=== PATIENT | male | born 1990 | race Caucasian/White ===

== ENCOUNTER 2021-10-30 21:46 | Emergency (ER) | payer OTHER ==
--- NOTE | 2021-10-30 22:17 | ERPHSYRPT ---
- History of Present Illness Time Seen by Provider: 10/30/21 22:12 Source: patient Exam Limitations: no limitations Patient Subjective Stated Complaint: PT states "I think I rebroke my right hand and I need a covid test for work." Triage Nursing Assessment: PT presented alert and oriented X 3, skin pwd Pt ambulates with an upright steady gait, able to speak in clear full sentencse pt right hand swollen and painful. Pt has intermittant cough. Physician History: PT states "I think I rebroke my right hand" Patient is 30-year-old male came to the emergency room with injury to his right hand with deformity in the mid part of the hand. Patient had a history of hand fracture last year. Occurred: just prior to arrival Method of Injury: direct blow Quality: constant Severity of Pain-Max: moderate Severity of Pain-Current: moderate Extremities Pain Location: hand: right Modifying Factors: Improves With: cold therapy Associated Symptoms: none Allergies/Adverse Reactions: No Known Drug Allergies Allergy (Verified 10/30/21 21:55) Hx Tetanus, Diphtheria Vaccination/Date Given: Yes Hx Influenza Vaccination/Date Given: No Hx Pneumococcal Vaccination/Date Given: No Immunizations Up to Date: Yes Travel Risk - International Travel Have you traveled outside of the country in past 3 weeks: No - Coronavirus Screening Are you exhibiting any of the following symptoms?: Yes Symptoms: Cough: New Onset Close contact with a COVID-19 positive Pt in past 14-21 Days: No - Vaccine Status Have you recieved a Covid-19 vaccination: No - Review of Systems Constitutional: No Symptoms Eyes: No Symptoms Ears, Nose, & Throat: No Symptoms Respiratory: No Symptoms Cardiac: No Symptoms Abdominal/Gastrointestinal: No Symptoms Genitourinary Symptoms: No Symptoms Musculoskeletal: Deformity, Joint Pain, Joint Swelling - Past Medical History Pertinent Past Medical History: Yes Psycho-Social History: Anxiety, Depression - Past Surgical History Past Surgical History: No - Social History Smoking Status: Current every day smoker How long have you smoked: years Exposure to second hand smoke: Yes Drug Use: none Patient Lives Alone: No - Nursing Vital Signs Nursing Vital Signs: Initial Vital Signs Temperature 97.6 F 10/30/21 21:50 Pulse Rate 98 H 10/30/21 21:50 Respiratory Rate 18 10/30/21 21:50 Blood Pressure 152/97 10/30/21 21:50 O2 Sat by Pulse Oximetry 98 10/30/21 21:50 Pain Scale Pain Intensity 6 - Physical Exam General Appearance: no apparent distress Eyes, Ears, Nose, Throat Exam: normal ENT inspection Neck Exam: normal inspection Cardiovascular/Respiratory Exam: chest non-tender Abdominal Exam: non-tender Back Exam: normal inspection Shoulder Exam: normal inspection Elbow/Forearm Exam: normal inspection Wrist Exam: normal inspection Hand Exam: bone tenderness, limited ROM, soft tissue tenderness, stiffness SpO2: 98 - Course Nursing assessment & vital signs reviewed: Yes - Radiology Exams Hand X-ray Interpretation: Reviewed by me, No Fracture Ordered Tests: Active Orders 24 hr Category Date Time Status HAND (MINIMUM 3 VIEWS) Stat Exams 10/30/21 21:54 Taken - Progress Progress: unchanged, pain not gone completely Counseled pt/family regarding: diagnosis, need for follow-up, rad results - Departure Departure Disposition: Home Clinical Impression: Injury of hand, right Qualifiers: Encounter type: initial encounter Qualified Code(s): S69.91XA - Unspecified injury of right wrist, hand and finger(s), initial encounter Condition: Stable Critical Care Time: No Referrals: DOCTOR,NO FAMILY [Primary Care Provider] - [facility]th[facility] M-F [id number] Instructions: Hand Pain (DC) Additional Instructions: Discharge/Care Plan KRISFLACA HERNANDEZ was seen on 10/30/21 in the Emergency Room. The patient was counseled regarding Diagnosis,Lab results, Imaging studies, need for follow up and when to return to the Emergency Room. Prescriptions given: Discharge Note I have spoken with the patient and/or caregivers. I have explained the patient's condition, diagnosis and treatment plan based on the information available to me at this time. I have answered the patient's and/or caregiver's questions and addressed any concerns. The patient and/or caregivers have as good understanding of the patient's diagnosis, condition and treatment plan as can be expected at this point. The vital signs have been stable. The patient's condition is stable and appropriate for discharge from the emergency department. The patient will pursue further outpatient evaluation with the primary care physician or other designated or consulting physician as outlined in the discharge instructions. The patient and/or caregivers are agreeable to this plan of care and follow-up instructions have been explained in detail. The patient and/or caregivers have received these instruction. The patient/and or caregivers are aware that any significant change in condition or worsening of symptoms should prompt an immediate return to this or the closest emergency department or call 911. KRISFLACA HERNANDEZ was seen on 10/30/21 n the Emergency Room. At that time you were treated for an emergent condition, during your visit Laboratory, Radiology and/or other procedures may have been ordered. It is very important that you follow-up with your Primary Care Physician NO FAMILY DOCTOR within the next 24-48 hours to review your Emergency Room visit and the final results of testing that was ordered. Some test results such as Urine Cultures, Blood Cultures, and other cultures if ordered will not be finalized for 24-48 hours. If you do not have a Primary Care Provider please call the medical records department at [phone] ext [phone] to obtain a copy of your results or you may sign into our patient portal to obtain these results by visiting us @ [email or web address] and completing the following steps: 1. Click on the Patient Portal link 2. Click the Patient Self Enrollment Link to complete the enrollment form and entering your 3. Once the enrollment form is completed you will receive an email with a temporary ID and password at the email address you provided. 4. Next choose a user name and password. Your user name must be at least 4 davonte cters long and your password must be at least 4 characters long. 5. Choose a security question from the list and provide your answer to the question. If you already have signed into the Health Portal you may access your Health Care Information 27/02 by the following steps: 1. Login to our website @ [email or web address] 2. Enter your original user name and password. FAQS The [facility] Health Portal is an online tool that contains your Lab Results, Radiology Reports, Visit History, Discharge Instructions and Health Summary Lab and Radiology Results will not be available for 72 hours on the portal. The Portal is a secure site, passwords are encryted and URLs are re-written so they cannot be copied and pasted. You and authorized family members are the only ones who can access your Portal. Also there is a timeout feature that protects your information if you leave the Portal page open. If you have technical difficulty please use the Contact Us link on the page this will allow you to submit any questions you have regarding the Portal or you may contact the Medical Record Department at [phone] ext [phone]. Prescriptions: Naproxen 500 mg [Naprosyn 500 MG] 500 mg PO BIDAC #30 tablet
[2021-10-30 23:10] VITALS: BP 119/72; PULSE 92; O2SAT 98
[2021-10-30] MEDS ORDERED: Naprosyn 500 MG PO ONE (23:15)
[2021-10-30] MEDS ORDERED: Naprosyn 500 MG ONE (23:17)
--- NOTE | 2021-10-31 08:11 | XRAY ---
Indication: Pain and swelling following injury. Comparison: None 3 view right hand demonstrates shortened 4th/5th metacarpals, developmental versus metabolic versus old trauma. No other bony, articular, or soft tissue abnormalities. Comment: Preliminary interpretation made by [facility]. No critical discrepancy.
== END 2021-10-30 23:36 | disposition home or self-care (01) ==
LOC: ED 21:46
DX: S69.91XA Unspecified injury of right wrist, hand and finger(s), initial encounter (principal); M79.641 Pain in right hand; M25.531 Pain in right wrist; R05.9 Cough, unspecified; Z72.0 Tobacco use
CPT/HCPCS: 73130; 99284; U0003; A9270-GY

== ENCOUNTER 2021-12-01 22:26 | Emergency (ER) | payer OTHER ==
[2021-12-01 23:32] LABS: Absolute Neutrophil Ct (ANC) 6.29 (1.4-6.9); Basophil (Absolute #) 0.02 (0-0.4); Eosinophil % 2.6 % (0.00-5.0); Eosinophil (Absolute #) 0.27 (0-0.5); Hematocrit 39.8 % (42-50); Hemoglobin 13.8 gm/dl (12.5-18.0); Lymphocyte (Absolute #) 2.87 (1.0-4.6); Lymphocytes % 27.7 % (24.0-44.0); Mean Cell Volume 85.2 fl (78-100); Mean Corpuscular Hemoglobin 29.6 pg (26-32); Mean Corpuscular Hgb Concent. 34.7 g/dl (32-36); Mean Platelet Volume 10.6 fl (7.5-11.0); Monocyte (Absolute #) 0.91 (0.0-1.3); Monocytes % 8.8 % (0.0-12.0); Neutrophil % 60.7 % (36.0-66.0); Platelet Count 273 K/mm3 (150-450); Red Blood Count 4.67 M/mm3 (4.1-5.6); White Blood Count 10.4 K/mm3 (4.0-10.5)
[2021-12-01 23:47] LABS: ALBUMIN 4.3 g/dL (3.5-5.0); ALKALINE PHOSPHATASE 76 U/L (38-126); ANION GAP 14.6 MEQ/L (5-15); BLOOD UREA NITROGEN 17 mg/dL (9-20); CHLORIDE 107 mmol/L (98-107); Calcium 9.4 mg/dL (8.4-10.2); Carbon Dioxide 21 mmol/L (22-30); Creatinine 1 1.01 mg/dL (0.66-1.25); EST GLOMERULAR FILTRATION RATE > 60.0 ML/MIN; Glucose 99 mg/dL (74-106); Potassium 3.7 mmol/L (3.5-5.1); SGOT/AST 37 U/L (17-59); SGPT/ALT 40 U/L (0-50); SODIUM 139 mmol/L (137-145); Total Protein 7.5 g/dL (6.3-8.2)
[2021-12-02 00:03] VITALS: BP 131/81; PULSE 108; O2SAT 97
--- NOTE | 2021-12-02 00:26 | ERPHSYRPT ---
- History of Present Illness Time Seen by Provider: 12/01/21 22:28 Source: patient Exam Limitations: no limitations Patient Subjective Stated Complaint: C/O active bleeding from his rectum that started just prior to arrival to ED. Triage Nursing Assessment: Patient ambulated back to ED with a slow, steady gait. He is alert and oriented and answering questions appropriately. Denies any abdominal pain or history of hemorroids. Patient showed this nurse pictures of toilet paper with a small amount of bright red blood on it from his phone. Patient then pulled toilet paper out of his boxer shorts with a small amount of bright red blood on it that he stated he had tucked in his buttocks. Denies any trauma or injury to rectum/anus. Physician History: 30-year-old currently on Suboxone for opiate abuse presented in the ER with bright red blood per rectum small amount when he had a bowel movement earlier at work. Patient denies any passing of clots. Reports that he does have to strain a lot. Denies any history of hemorrhoids. No abdominal/pelvic pain. No fever or chills reported. Denies any trauma. Patient brought picture of blood on toilet paper. Not taking any blood thinner. No history of blood dyscrasias. Timing/Duration: today, resolved prior to arrival, improved Severity: mild Modifying Factors: Improves With: nothing Associated Symptoms: No vomiting, No abdominal pain, No heartburn, No syncope, No weakness Allergies/Adverse Reactions: No Known Drug Allergies Allergy (Verified 12/01/21 22:37) Home Medications: Buprenorphine HCl/Naloxone HCl [Buprenorphine-Nalox 8-2 mg Tab] 2.25 tab PO DAILY 12/01/21 [History] Hx Tetanus, Diphtheria Vaccination/Date Given: Yes Hx Influenza Vaccination/Date Given: No Hx Pneumococcal Vaccination/Date Given: No Immunizations Up to Date: Yes Travel Risk - International Travel Have you traveled outside of the country in past 3 weeks: No - Coronavirus Screening Are you exhibiting any of the following symptoms?: No Close contact with a COVID-19 positive Pt in past 14-21 Days: No - Vaccine Status Have you recieved a Covid-19 vaccination: No - Review of Systems Constitutional: No Symptoms Ears, Nose, & Throat: No Symptoms Respiratory: No Symptoms Cardiac: No Symptoms Abdominal/Gastrointestinal: Hematochezia Genitourinary Symptoms: No Symptoms Skin: No Symptoms Endocrine: No Symptoms Hematologic/Lymphatic: No Symptoms - Past Medical History Pertinent Past Medical History: Yes Neurological History: No Pertinent History ENT History: No Pertinent History Cardiac History: No Pertinent History Respiratory History: No Pertinent History Endocrine Medical History: No Pertinent History Musculoskeletal History: Fractures GI Medical History: No Pertinent History History: No Pertinent History Psycho-Social History: Anxiety, Depression Male Reproductive Disorders: No Pertinent History - Past Surgical History Past Surgical History: Yes Neuro Surgical History: No Pertinent History Cardiac: No Pertinent History Respiratory: No Pertinent History Gastrointestinal: No Pertinent History Genitourinary: No Pertinent History Musculoskeletal: No Pertinent History Male Surgical History: No Pertinent History - Social History Smoking Status: Current every day smoker How long have you smoked: 12 years Exposure to second hand smoke: No Drug Use: none Patient Lives Alone: No - Nursing Vital Signs Nursing Vital Signs: Initial Vital Signs Temperature 97.2 F 12/01/21 22:37 Pulse Rate 120 H 12/01/21 22:37 Respiratory Rate 21 12/01/21 22:37 Blood Pressure 144/83 12/01/21 22:37 O2 Sat by Pulse Oximetry 97 12/01/21 22:37 Pain Scale Pain Intensity 7 - Physical Exam General Appearance: no apparent distress, alert Eye Exam: PERRL/EOMI Ears, Nose, Throat Exam: normal ENT inspection, pharynx normal Neck Exam: normal inspection, supple, full range of motion Respiratory Exam: normal breath sounds, lungs clear Cardiovascular Exam: regular rate/rhythm, normal heart sounds Gastrointestinal/Abdomen Exam: soft, normal bowel sounds, No tenderness Rectal Exam: normal rectal tone, blood (Small amount of blood staining the finger. No obvious hemorrhoids externally.), No tenderness Back Exam: normal inspection, normal range of motion Extremity Exam: normal inspection, normal range of motion Neurologic Exam: alert, oriented x 3, cooperative Skin Exam: normal color SpO2 Interpretation: normal SpO2: 97 O2 Delivery: Room Air Ordered Tests: Active Orders 24 hr Category Date Time Status CBC W DIFF Stat Lab 12/01/21 23:25 Completed CMP Stat Lab 12/01/21 23:25 Completed PTT Stat Lab 12/01/21 23:25 Completed Lab/Rad Data: Laboratory Result Diagrams 12/01/21 23:25 12/01/21 23:25 Laboratory Results 12/01/21 12/01/21 12/01/21 Range/Units 23:25 23:25 23:25 WBC 10.4 (4.0-10.5) K/mm3 RBC 4.67 (4.1-5.6) M/mm3 Hgb 13.8 (12.5-18.0) gm/dl Hct 39.8 L (42-50) % MCV 85.2 (78-100) fl MCH 29.6 (26-32) pg MCHC 34.7 (32-36) g/dl RDW 13.0 (11.5-14.0) % Plt Count 273 (150-450) K/mm3 MPV 10.6 (7.5-11.0) fl Gran % 60.7 (36.0-66.0) % Eos # (Auto) 0.27 (0-0.5) Absolute Lymphs (auto) 2.87 (1.0-4.6) Absolute Monos (auto) 0.91 (0.0-1.3) Lymphocytes % 27.7 (24.0-44.0) % Monocytes % 8.8 (0.0-12.0) % Eosinophils % 2.6 (0.00-5.0) % Basophils % 0.2 (0.0-0.4) % Absolute Granulocytes 6.29 (1.4-6.9) Basophils # 0.02 (0-0.4) APTT 35.5 (25.1-36.5) SECONDS Sodium 139 (137-145) mmol/L Potassium 3.7 (3.5-5.1) mmol/L Chloride 107 (98-107) mmol/L Carbon Dioxide 21 L (22-30) mmol/L Anion Gap 14.6 (5-15) MEQ/L BUN 17 (9-20) mg/dL Creatinine 1.01 (0.66-1.25) mg/dL Estimated GFR > 60.0 ML/MIN Glucose 99 (74-106) mg/dL Calcium 9.4 (8.4-10.2) mg/dL Total Bilirubin 0.30 (0.2-1.3) mg/dL AST 37 (17-59) U/L ALT 40 (0-50) U/L Alkaline Phosphatase 76 (38-126) U/L Serum Total Protein 7.5 (6.3-8.2) g/dL Albumin 4.3 (3.5-5.0) g/dL - Progress Progress: improved Progress Note: 12/02/21 00:23 As stable vital, no abdominal pain. Stable H&H. Recommended stool softener and outpatient primary care and general surgery follow-up for possible c olonoscopy/endoscopy. Discussed signs symptoms of worsening needing return to ER which he seems understanding. Counseled pt/family regarding: lab results, diagnosis, need for follow-up - Departure Departure Disposition: Home Clinical Impression: Rectal bleed Condition: Stable Critical Care Time: No Referrals: DOCTOR,NO FAMILY [Primary Care Provider] - Follow up/PCP as directed RANDY PAREDES MD [ACTIVE STAFF] - Follow up/PCP as directed (Call tomorrow for reevaluation) Instructions: Bloody Stools, Adult (DC) Additional Instructions: Drink plenty of fluids. Take daily stool softener. Follow-up with primary care/GI for reevaluation. Return to ER if again having rectal bleeding, abdominal pain, fever chills, feeling weak fatigued tired, chest pain palpitations or shortness of breath etc. Prescriptions: Polyethylene Glycol 3350 17 gm [Miralax Powder 17GM PACKET] 17 gm PO DAILY #30 packet
== END 2021-12-02 00:35 | disposition home or self-care (01) ==
LOC: ED 22:26
DX: K62.5 Hemorrhage of anus and rectum (principal); Z72.0 Tobacco use; Z79.891 Long term (current) use of opiate analgesic
CPT/HCPCS: 36415; 80053; 85025; 85730; 99283

== ENCOUNTER 2022-04-20 15:58 | Emergency (ER) | payer OTHER ==
--- NOTE | 2022-04-20 16:26 | ERPHSYRPT ---
- History of Present Illness Source: patient Exam Limitations: no limitations Patient Subjective Stated Complaint: C/O cough, sorethroat, headaches since Monday night. His job made him leave work today due to symptoms. Triage Nursing Assessment: Patient ambulated back to ED without difficulties. He is alert and oriented. No SOB noted. Weak, dry, non-productive cough noted during assessment. Physician History: 31 yo wm w cough/coryza/ST/SOLOMON x2days wo N/V/D. Pt smokes 1ppd. He denies chest pain and dyspnea. Timing/Duration: other (2 days) Cough Quality/Degree: dry cough Possible Cause: occasional episodes Modifying Factors: Improves With: nothing Associated Symptoms: cough, headache, nasal congestion, nasal drainage, sore throat, No fever, No chills, No chest pain/soreness, No dizziness, No earache, No facial pain, No lightheadedness, No muscle aches, No shortness of breath, No sinus infection, No wheezing Allergies/Adverse Reactions: No Known Drug Allergies Allergy (Verified 04/20/22 16:06) Home Medications: Buprenorphine HCl/Naloxone HCl [Buprenorphine-Nalox 8-2 mg Tab] 2.25 mg SL DAILY 02/01/22 [History] Bupropion HCl 150 mg Sr [Wellbutrin SR 150 MG] 1 tab PO DAILY 04/20/22 [History] Hx Tetanus, Diphtheria Vaccination/Date Given: Yes Hx Influenza Vaccination/Date Given: No Hx Pneumococcal Vaccination/Date Given: No Immunizations Up to Date: Yes Travel Risk - International Travel Have you traveled outside of the country in past 3 weeks: No - Coronavirus Screening Are you exhibiting any of the following symptoms?: Yes Symptoms: Cough: New Onset, Headaches/Body Aches/Fatigue - Vaccine Status Have you recieved a Covid-19 vaccination: No - Review of Systems Constitutional: No Symptoms Eyes: No Symptoms Ears, Nose, & Throat: No Symptoms, Nose Pain, Nose Congestion, Nose Discharge Respiratory: No Symptoms, Cough Cardiac: No Symptoms Abdominal/Gastrointestinal: No Symptoms Genitourinary Symptoms: No Symptoms Musculoskeletal: No Symptoms Skin: No Symptoms Neurological: No Symptoms Psychological: No Symptoms Endocrine: No Symptoms Hematologic/Lymphatic: No Symptoms Immunological/Allergic: No Symptoms - Past Medical History Pertinent Past Medical History: Yes Neurological History: No Pertinent History ENT History: No Pertinent History Cardiac History: No Pertinent History Respiratory History: No Pertinent History Endocrine Medical History: No Pertinent History Musculoskeletal History: Fractures GI Medical History: No Pertinent History History: No Pertinent History Psycho-Social History: Anxiety, Depression Male Reproductive Disorders: No Pertinent History - Past Surgical History Past Surgical History: Yes Neuro Surgical History: No Pertinent History Cardiac: No Pertinent History Respiratory: No Pertinent History Gastrointestinal: No Pertinent History Genitourinary: No Pertinent History Musculoskeletal: No Pertinent History Male Surgical History: No Pertinent History - Social History Smoking Status: Current every day smoker How long have you smoked: 12 years Exposure to second hand smoke: No Drug Use: none Patient Lives Alone: No - Nursing Vital Signs Nursing Vital Signs: Initial Vital Signs Temperature 98.4 F 04/20/22 16:08 Pulse Rate 89 04/20/22 16:08 Respiratory Rate 20 04/20/22 16:08 Blood Pressure 148/85 04/20/22 16:08 O2 Sat by Pulse Oximetry 95 04/20/22 16:08 Pain Scale Pain Intensity 6 Hypertensive - Physical Exam General Appearance: no apparent distress Eye Exam: PERRL/EOMI, eyes nml inspection Ears, Nose, Throat Exam: normal ENT inspection, TMs normal, pharynx normal, moist mucous membranes Neck Exam: normal inspection, non-tender, supple, full range of motion, No meningismus, No mass, No Brudzinski, No Kernig's Respiratory Exam: wheezing (Scattered wheezes B), No respiratory distress Cardiovascular Exam: regular rate/rhythm, normal heart sounds, capillary refill <2 sec, No murmur Gastrointestinal/Abdomen Exam: soft, normal bowel sounds, No tenderness Back Exam: normal inspection, normal range of motion, No CVA tenderness, No vertebral tenderness Extremity Exam: normal inspection, normal range of motion Neurologic Exam: alert, oriented x 3, cooperative, dentist II-XII nml as tested, normal mood/affect, nml cerebellar function, nml station & gait, sensation nml Skin Exam: normal color, warm, dry, No rash Lymphatic Exam: No adenopathy SpO2 Interpretation: normal SpO2: 95 O2 Delivery: Room Air - Course Nursing assessment & vital signs reviewed: Yes - Radiology Exams Chest X-ray Interpretation: Discussed w/ radiologist (CXR neg) Ordered Tests: Active Orders 24 hr Category Date Time Status CHEST 1 VIEW (PORTABLE) Stat Exams 04/20/22 16:21 Completed Lab/Rad Data: Laboratory Results 04/20/22 Range/Units Unknown Influenza Type A Ag NEGATIVE (NEGATIVE) Influenza Type B Ag NEGATIVE (NEGATIVE) RSV (PCR) NEGATIVE (Negative) SARS-CoV-2 (PCR) NEGATIVE (NEGATIVE) Group A Strep Antibody NOT DETECTED (NEGATIVE) - Progress Counseled pt/family regarding: lab results, diagnosis, need for follow-up, rad results - Departure Departure Disposition: Home Clinical Impression: Bronchitis Condition: Stable Critical Care Time: No Referrals: SURYA GREENE MD [Primary Care Provider] - Follow up/PCP as directed Instructions: Cough, Adult (DC), Bronchitis, Adult ED Additional Instructions: Follow up with your family MD Quit smoking Proventil inhaler 2 puffs every 4 hours as needed Prednisone twice a day for 5 days Return to ER for worsening cough, increasing shortness of breath, or temperature greater than 100.5 Forms: Work/School Release Form Prescriptions: Albuterol Sulfate [Proventil Hfa] 2 puffs IH Q4HPRN PRN #1 inhaler PRN Reason: Shortness Of Breath Prednisone 10 mg [Deltasone 10 mg] 10 mg PO BID 5 Days #10 tablet
[2022-04-20 16:45] LABS: Group A Strep NOT DETECTED (NEGATIVE)
[2022-04-20 16:57] LABS: INFLUENZA A NEGATIVE (NEGATIVE); INFLUENZA B NEGATIVE (NEGATIVE); RESPIRATORY SYNCTIAL VIRUS NEGATIVE (Negative); SARS-CoV-2 Xpert Express NEGATIVE (NEGATIVE)
--- NOTE | 2022-04-20 17:10 | XRAY ---
Exam: AP upright portable chest film from 04/20/2022. Comparison: None. Indication: 31-year-old male with cough. Findings: The film was obtained in a lordotic projection. The heart size and contour are normal. Minimal nonspecific central bronchial wall thickening is seen. The remainder of the izzy and mediastinal structures appears unremarkable. The lungs are adequately inflated. No air space infiltrates, vascular congestion, pneumothorax, or pleural fluid is seen. No other lung abnormality is seen. No acute osseous process is seen. Impression: 1. No air space infiltrates to suggest pneumonia or other acute cardiopulmonary disease seen.
[2022-04-20 17:19] VITALS: BP 139/82; PULSE 78
[2022-04-20 17:22] VITALS: O2SAT 95
== END 2022-04-20 17:33 | disposition home or self-care (01) ==
LOC: ED 15:58
DX: J40 Bronchitis, not specified as acute or chronic (principal); R05.1 Acute cough; R09.81 Nasal congestion; J02.9 Acute pharyngitis, unspecified; R51.9 Headache, unspecified; Z72.0 Tobacco use; Z79.891 Long term (current) use of opiate analgesic; Z79.52 Long term (current) use of systemic steroids; Z79.899 Other long term (current) drug therapy; Z28.310 Unvaccinated for COVID-19
CPT/HCPCS: 0241U; 71045; 87651; 99283

== ENCOUNTER 2022-07-10 16:48 | Emergency (ER) | payer OTHER ==
[2022-07-10] MEDS ORDERED: Sodium Chloride 0.9% 1000 ML 1,000 ML IV STA (17:39)
[2022-07-10] MEDS ORDERED: TORAdol 30 mg Injection IV ONE (17:39)
[2022-07-10] MEDS ORDERED: Zofran 4 MG/2 ML VIAL IV ONE (17:39)
[2022-07-10] MEDS ORDERED: Zofran 4 MG/2 ML VIAL ONE (17:43)
[2022-07-10] MEDS ORDERED: TORAdol 30 mg Injection ONE (17:43)
[2022-07-10] MEDS ORDERED: Sodium Chloride 0.9% 1000 ML 1,000 ML ONE (17:43)
--- NOTE | 2022-07-10 17:45 | ERPHSYRPT ---
- History of Present Illness Time Seen by Provider: 07/10/22 16:52 Historian: patient Exam Limitations: no limitations Patient Subjective Stated Complaint: Vomiting Triage Nursing Assessment: Patient ambulated back to ED and transferred self to bed. Patient A+O X 3. Patient's skin pink, warm and dry. Patient complains of vomiting, cough, fever, SOB, nausea, headache, bodyache and fatigue for one week. Patient was sent home from work today for vomiting. Patient also complains of blood in stool. Patient complains of body aches 03/16. Physician History: 31 years old male presented in the ER with 1 week history of flulike symptoms with generalized body aches fatigue tiredness, headache, abdominal pain nausea vomiting diarrhea. Feeling weak fatigued tired and dehydrated. Subjective feeling of fever and chills. Minimal cough without any obvious difficulty breathing. Timing/Duration: week(s) (1), constant, gradual onset, worse Activities at Onset: rest Quality: cramping, dullness Abdominal Pain Onset Location: generalized abdomen Pain Radiation: no radiation Severity of Pain-Max: moderate Severity of Pain-Current: moderate Modifying Factors: Improves With: nothing Associated Symptoms: diarrhea, fever/chills, fatigue, headache, nausea, vomiting Previous symptoms: no prior history Allergies/Adverse Reactions: No Known Drug Allergies Allergy (Verified 07/10/22 17:21) Home Medications: Buprenorphine HCl/Naloxone HCl [Buprenorphine-Nalox 8-2 mg Tab] 2.25 mg SL DAILY 02/01/22 [History] Hx Tetanus, Diphtheria Vaccination/Date Given: Yes Hx Influenza Vaccination/Date Given: No Hx Pneumococcal Vaccination/Date Given: No Immunizations Up to Date: Yes Travel Risk - International Travel Have you traveled outside of the country in past 3 weeks: No - Coronavirus Screening Are you exhibiting any of the following symptoms?: No Symptoms: Fever, Cough: New Onset, Shortness of Breath, Vomiting/Diarrhea, Loss of Taste or Smell, Headaches/Body Aches/Fatigue Close contact with a COVID-19 positive Pt in past 14-21 Days: No - Vaccine Status Have you recieved a Covid-19 vaccination: No - Review of Systems Constitutional: Fever, Chills, Fatigue, Weakness Eyes: No Symptoms Ears, Nose, & Throat: Nose Congestion, Throat Pain Respiratory: Cough Cardiac: No Symptoms Abdominal/Gastrointestinal: Abdominal Pain, Nausea, Vomiting, Diarrhea Genitourinary Symptoms: No Symptoms Musculoskeletal: Myalgias Skin: No Symptoms Neurological: Headache Psychological: No Symptoms Endocrine: No Symptoms Hematologic/Lymphatic: No Symptoms Immunological/Allergic: No Symptoms - Past Medical History Pertinent Past Medical History: Yes Neurological History: No Pertinent History ENT History: No Pertinent History Cardiac History: No Pertinent History Respiratory History: No Pertinent History Endocrine Medical History: No Pertinent History Musculoskeletal History: Fractures GI Medical History: No Pertinent History History: No Pertinent History Psycho-Social History: Anxiety, Depression Male Reproductive Disorders: No Pertinent History - Past Surgical History Past Surgical History: Yes Neuro Surgical History: No Pertinent History Cardiac: No Pertinent History Respiratory: No Pertinent History Gastrointestinal: No Pertinent History Genitourinary: No Pertinent History Musculoskeletal: No Pertinent History Male Surgical History: No Pertinent History - Social History Smoking Status: Current every day smoker How long have you smoked: 12 years Exposure to second hand smoke: No Drug Use: none Patient Lives Alone: No - Nursing Vital Signs Nursing Vital Signs: Initial Vital Signs Temperature 97.9 F 07/10/22 17:22 Pulse Rate 111 H 07/10/22 17:22 Respiratory Rate 18 07/10/22 17:22 Blood Pressure 147/94 07/10/22 17:22 O2 Sat by Pulse Oximetry 95 07/10/22 17:22 Pain Scale Pain Intensity 4 - Physical Exam General Appearance: no apparent distress, alert Eye Exam: PERRL/EOMI, eyes nml inspection Ears, Nose, Throat Exam: moist mucous membranes, pharyngeal erythema Neck Exam: normal inspection, non-tender, supple, full range of motion Respiratory Exam: normal breath sounds, lungs clear Cardiovascular Exam: normal heart sounds, tachycardia Gastrointestinal/Abdomen Exam: soft, normal bowel sounds, tenderness (Generalized mild), No guarding Back Exam: normal inspection, normal range of motion Extremity Exam: normal inspection, normal range of motion Neurologic Exam: alert, oriented x 3, cooperative Skin Exam: normal color SpO2 Interpretation: normal SpO2: 95 O2 Delivery: Room Air Ordered Tests: Active Orders 24 hr Category Date Time Status IV Insertion STAT Care 07/10/22 17:39 Active NPO (ED) STAT Care 07/10/22 17:39 Active ABDOMEN AND PELVIS W/0 CONTRAS [CT] Stat Exams 07/10/22 17:39 Taken CBC W DIFF Stat Lab 07/10/22 18:00 Completed CMP Stat Lab 07/10/22 18:00 Completed LIPASE Stat Lab 07/10/22 18:00 Completed Lactic Acid Stat Lab 07/10/22 17:39 Completed PROCALCITONIN Stat Lab 07/10/22 19:12 Completed UA W/RFX CULTURE Stat Lab 07/10/22 18:28 Completed Medication Summary Discontinued Medications Generic Name Dose Route Start Last Admin Trade Name Owen PRN Reason Stop Dose Admin Sodium Chloride 1,000 mls @ 999 mls/hr 07/10/22 17:39 07/10/22 18:47 Sodium Chloride 0.9% 1000 Ml IV 07/10/22 18:39 Infused .Q1H1M STA Infusion Sodium Chloride Confirm 07/10/22 17:43 Sodium Chloride 0.9% 1000 Ml Administered 07/10/22 17:44 Dose 1,000 mls @ ud .ROUTE .STK-MED ONE Ketorolac Tromethamine 30 mg 07/10/22 17:39 07/10/22 17:45 Ketorolac Tromethamine 30 Mg/Ml Inj IV 07/10/22 17:40 30 mg STAT ONE Administration Ketorolac Tromethamine Confirm 07/10/22 17:43 Ketorolac Tromethamine 30 Mg/Ml Inj Administered 07/10/22 17:44 Dose 30 mg .ROUTE .STK-MED ONE Ondansetron HCl 4 mg 07/10/22 17:39 07/10/22 17:45 Ondansetron Hcl 4 Mg/2 Ml Vial IV 07/10/22 17:40 4 mg STAT ONE Administration Ondansetron HCl Confirm 07/10/22 17:43 Ondansetron Hcl 4 Mg/2 Ml Vial Administered 07/10/22 17:44 Dose 4 mg .ROUTE .STK-MED ONE Lab/Rad Data: Laboratory Result Diagrams 07/10/22 18:00 07/10/22 18:00 Laboratory Results 07/10/22 07/10/22 07/10/22 Range/Units 19:12 18:37 18:28 WBC (4.0-10.5) x10^3/uL RBC (4.1-5.6) x10^6/uL Hgb (12.5-18.0) g/dL Hct (42-50) % MCV (78-100) fL MCH (26-32) pg MCHC (32-36) g/dL RDW (11.5-14.0) % Plt Count (150-450) x10^3/uL MPV (7.5-11.0) fL Gran % (36.0-66.0) % Immature Gran % (Auto) (0.00-0.4) % Nucleat RBC Rel Count (0.00-0.1) % Eos # (Auto) (0-0.5) x10^3/uL Immature Gran # (Auto) (0.00-0.03) x10^3u/L Absolute Lymphs (auto) (1.0-4.6) x10^3/uL Absolute Monos (auto) (0.0-1.3) x10^3/uL Absolute Nucleated RBC (0.00-0.01) x10^3u/L Lymphocytes % (24.0-44.0) % Monocytes % (0.0-12.0) % Eosinophils % (0.00-5.0) % Basophils % (0.0-0.4) % Absolute Granulocytes (1.4-6.9) x10^3/uL Basophils # (0-0.4) x10^3/uL Sodium (137-145) mmol/L Potassium (3.5-5.1) mmol/L Chloride (98-107) mmol/L Carbon Dioxide (22-30) mmol/L Anion Gap (5-15) MEQ/L BUN (9-20) mg/dL Creatinine (0.66-1.25) mg/dL Estimated GFR ML/MIN Glucose (74-106) mg/dL Lactic Acid (0.4-2.0) Calcium (8.4-10.2) mg/dL Total Bilirubin (0.2-1.3) mg/dL AST (17-59) U/L ALT (0-50) U/L Alkaline Phosphatase (38-126) U/L Serum Total Protein (6.3-8.2) g/dL Albumin (3.5-5.0) g/dL Lipase (23-300) U/L Procalcitonin 0.051 (0.030-0.080) ng/mL Urinalys Dipstick Clnc MAIN LAB Urine Color YELLOW (YELLOW) Urine Appearance CLEAR (CLEAR) Urine pH 5.5 (5-6) Ur Specific [place] 1.010 (1.005-1.025) POC Urine Protein Conf NEGATIVE (Negative) Urine Ketones NEGATIVE (NEGATIVE) Urine Nitrite NEGATIVE (NEGATIVE) Urine Bilirubin NEGATIVE (NEGATIVE) Urine Urobilinogen 0.2 (0-1) mg/dL Urine Leukocytes NEGATIVE (NEGATIVE) Urine WBC (Auto) NONE (0-5) /HPF Urine RBC (Auto) NONE (0-2) /HPF U Epithel Cells (Auto) NONE (FEW) /HPF Urine Bacteria (Auto) NONE (NEGATIVE) /HPF Urine RBC NEGATIVE (0-5) Angelo/ul Ur Culture Indicated? NO Urine Glucose NEGATIVE (NEGATIVE) mg/dL Influenza Type A Ag NEGATIVE (NEGATIVE) Influenza Type B Ag NEGATIVE (NEGATIVE) RSV (PCR) NEGATIVE (Negative) SARS-CoV-2 (PCR) NEGATIVE (NEGATIVE) 07/10/22 07/10/22 07/10/22 Range/Units 18:00 18:00 17:39 WBC 13.4 H (4.0-10.5) x10^3/uL RBC 4.49 (4.1-5.6) x10^6/uL Hgb 13.0 (12.5-18.0) g/dL Hct 39.9 L (42-50) % MCV 88.9 (78-100) fL MCH 29.0 (26-32) pg MCHC 32.6 (32-36) g/dL RDW 12.6 (11.5-14.0) % Plt Count 248 (150-450) x10^3/uL MPV 10.3 (7.5-11.0) fL Gran % 77.4 H (36.0-66.0) % Immature Gran % (Auto) 0.3 (0.00-0.4) % Nucleat RBC Rel Count 0.0 (0.00-0.1) % Eos # (Auto) 0.33 (0-0.5) x10^3/uL Immature Gran # (Auto) 0.04 H (0.00-0.03) x10^3u/L Absolute Lymphs (auto) 1.86 (1.0-4.6) x10^3/uL Absolute Monos (auto) 0.76 (0.0-1.3) x10^3/uL Absolute Nucleated RBC 0.00 (0.00-0.01) x10^3u/L Lymphocytes % 13.9 L (24.0-44.0) % Monocytes % 5.7 (0.0-12.0) % Eosinophils % 2.5 (0.00-5.0) % Basophils % 0.2 (0.0-0.4) % Absolute Granulocytes 10.35 H (1.4-6.9) x10^3/uL Basophils # 0.03 (0-0.4) x10^3/uL Sodium 136 L (137-145) mmol/L Potassium 3.7 (3.5-5.1) mmol/L Chloride 103 (98-107) mmol/L Carbon Dioxide 27 (22-30) mmol/L Anion Gap 10.2 (5-15) MEQ/L BUN 9 (9-20) mg/dL Creatinine 0.94 (0.66-1.25) mg/dL Estimated GFR > 60.0 ML/MIN Glucose 118 H (74-106) mg/dL Lactic Acid 1.5 (0.4-2.0) Calcium 8.4 (8.4-10.2) mg/dL Total Bilirubin 0.30 (0.2-1.3) mg/dL AST 23 (17-59) U/L ALT 26 (0-50) U/L Alkaline Phosphatase 65 (38-126) U/L Serum Total Protein 7.0 (6.3-8.2) g/dL Albumin 3.9 (3.5-5.0) g/dL Lipase 46 (23-300) U/L Procalcitonin (0.030-0.080) ng/mL Urinalys Dipstick Clnc Urine Color (YELLOW) Urine Appearance (CLEAR) Urine pH (5-6) Ur Specific [place] (1.005-1.025) POC Urine Protein Conf (Negative) Urine Ketones (NEGATIVE) Urine Nitrite (NEGATIVE) Urine Bilirubin (NEGATIVE) Urine Urobilinogen (0-1) mg/dL Urine Leukocytes (NEGATIVE) Urine WBC (Auto) (0-5) /HPF Urine RBC (Auto) (0-2) /HPF U Epithel Cells (Auto) (FEW) /HPF Urine Bacteria (Auto) (NEGATIVE) /HPF Urine RBC (0-5) Angelo/ul Ur Culture Indicated? Urine Glucose (NEGATIVE) mg/dL Influenza Type A Ag (NEGATIVE) Influenza Type B Ag (NEGATIVE) RSV (PCR) (Negative) SARS-CoV-2 (PCR) (NEGATIVE) - Progress Progress: improved Progress Note: 07/10/22 20:07 31 years old is evaluated for abdominal pain with flulike symptoms. Patient has dentalized tenderness but more in the upper abdomen. Has a white count of 13, grossly unremarkable chemistries including liver enzymes and lipase. Given fluids and symptomatic treatment, on reevaluation feeling much better. CT showed no gallbladder wall swelling, stones or CBD dilation but does have some pericholecystic fluids with some fat stranding suggesting cholecystitis. I have discussed with Dr. Knowles who is okay with keeping patient in the hospital as well as discharged with outpatient follow-up depending on patient's response to treatment here. I have discussed with patient in detail and he is feeling much better and wants to go home and would follow-up outpatient with general surgery. Discussed signs symptoms of worsening needing return to ER which he seems understanding. Stable for discharge. Discussed with : Maria Victoria Counseled pt/family regarding: lab results, diagnosis, need for follow-up, rad results - Departure Departure Disposition: Home Clinical Impression: Cholecystitis Condition: Stable Critical Care Time: No Referrals: SURYA GREENE MD [Primary Care Provider] - Follow Up with PCP/3 days ADRIEL MICHEL [COURTESY STAFF] - Follow up/PCP as directed (Tomorrow morning for reevaluation) Instructions: Gallstones (DC) Additional Instructions: Take pain medications as needed. Follow-up with primary care and general surgery for reevaluation. Call general surgery office tomorrow morning for reevaluation appointment. Return to ER for intractable abdominal pain/vomiting/fever chills etc. Prescriptions: Hydrocodone/Acetaminophen [Hydrocodone-Acetamin 5-325 mg] 1 tab PO Q6HPRN PRN 3 Days #7 tablet MDD 4 PRN Reason: Pain Ibuprofen 600 mg PO Q6HPRN PRN 10 Days #20 tablet PRN Reason: Pain Ondansetron ODT 4 MG [Zofran Odt 4 mg] 1 ea PO QIDPRN PRN #7 tablet PRN Reason: n/v
[2022-07-10 18:02] LABS: Absolute Neutrophil Ct (ANC) 10.35 x10^3/uL (1.4-6.9); Basophil (Absolute #) 0.03 x10^3/uL (0-0.4); Eosinophil % 2.5 % (0.00-5.0); Eosinophil (Absolute #) 0.33 x10^3/uL (0-0.5); Hematocrit 39.9 % (42-50); Lymphocyte (Absolute #) 1.86 x10^3/uL (1.0-4.6); Lymphocytes % 13.9 % (24.0-44.0); Mean Cell Volume 88.9 fL (78-100); Mean Corpuscular Hgb Concent. 32.6 g/dL (32-36); Mean Platelet Volume 10.3 fL (7.5-11.0); Monocyte (Absolute #) 0.76 x10^3/uL (0.0-1.3); Monocytes % 5.7 % (0.0-12.0); Neutrophil % 77.4 % (36.0-66.0); Platelet Count 248 x10^3/uL (150-450); Red Blood Count 4.49 x10^6/uL (4.1-5.6); Red Cell Distribution Width 12.6 % (11.5-14.0); White Blood Count 13.4 x10^3/uL (4.0-10.5)
[2022-07-10 18:16] LABS: ALBUMIN 3.9 g/dL (3.5-5.0); ALKALINE PHOSPHATASE 65 U/L (38-126); ANION GAP 10.2 MEQ/L (5-15); BLOOD UREA NITROGEN 9 mg/dL (9-20); CHLORIDE 103 mmol/L (98-107); Calcium 8.4 mg/dL (8.4-10.2); Carbon Dioxide 27 mmol/L (22-30); Creatinine 1 0.94 mg/dL (0.66-1.25); EST GLOMERULAR FILTRATION RATE > 60.0 ML/MIN; Glucose 118 mg/dL (74-106); LIPASE 46 U/L (23-300); Potassium 3.7 mmol/L (3.5-5.1); SGOT/AST 23 U/L (17-59); SGPT/ALT 26 U/L (0-50); SODIUM 136 mmol/L (137-145)
[2022-07-10 18:48] LABS: Appearance CLEAR (CLEAR); Bilirubin NEGATIVE (NEGATIVE); Dipstick done @ ? MAIN LAB; Glucose NEGATIVE (NEGATIVE); Ketones NEGATIVE (NEGATIVE); Nitrite NEGATIVE (NEGATIVE); Ph 5.5 (5-6); Protein,Urine Dip NEGATIVE (Negative); RBC NEGATIVE Ery/ul (0-5); Urobilinogen 0.2 mg/dL (0-1)
[2022-07-10 18:53] LABS: Urine Cultured Indicated? NO
[2022-07-10 19:15] LABS: INFLUENZA A NEGATIVE (NEGATIVE); INFLUENZA B NEGATIVE (NEGATIVE); RESPIRATORY SYNCTIAL VIRUS NEGATIVE (Negative); SARS-CoV-2 Xpert Express NEGATIVE (NEGATIVE)
[2022-07-10 20:11] VITALS: BP 110/56
[2022-07-10 20:13] VITALS: O2SAT 95
[2022-07-10] MEDS ORDERED: NORCO 5/325 MG PO ONE (20:13)
[2022-07-10 20:14] VITALS: PULSE 97
[2022-07-10] MEDS ORDERED: NORCO 5/325 MG ONE (20:20)
--- NOTE | 2022-07-11 08:40 | XRAY ---
Indication: Abdomen pain, nausea, vomiting, diarrhea. Multiple contiguous axial images obtained through the abdomen and pelvis without contrast. Comparison: None Lung bases clear of focal infiltrate or effusion. Heart not enlarged. Noncontrasted stomach and bowel loops appear nonobstructed with normal appendix. No free fluid/air. Remaining liver, gallbladder, pancreas, spleen, adrenal glands, kidneys, ureters, bladder, and aorta are unremarkable for noncontrast exam. Osseous structures intact. No ventral or inguinal hernias. Impression: Negative CT abdomen/pelvis without contrast exam. Comment: Preliminary interpretation made by [facility]. No critical discrepancy.
== END 2022-07-10 20:33 | disposition home or self-care (01) ==
LOC: ED 16:48
DX: K81.9 Cholecystitis, unspecified (principal); M79.10 Myalgia, unspecified site; R53.83 Other fatigue; R51.9 Headache, unspecified; R10.9 Unspecified abdominal pain; R11.2 Nausea with vomiting, unspecified; R19.7 Diarrhea, unspecified; Z79.891 Long term (current) use of opiate analgesic; Z28.310 Unvaccinated for COVID-19; Z72.0 Tobacco use
CPT/HCPCS: 0241U; 36000; 36415; 74176; 80053; 81015; 83605; 83690; 84145; 85025; 96360; 96374; 96375; 99284; J1885; J2405; A9270-GY

== ENCOUNTER 2022-10-27 22:17 | Emergency (ER) | payer OTHER ==
[2022-10-27 23:07] VITALS: BP 131/73
[2022-10-27] MEDS ORDERED: TORAdol 30 mg Injection IM ONE (23:34)
[2022-10-27] MEDS ORDERED: TORAdol 30 mg Injection ONE (23:36)
--- NOTE | 2022-10-27 23:39 | ERPHSYRPT ---
- History of Present Illness Time Seen by Provider: 10/27/22 23:40 Source: patient Exam Limitations: no limitations Patient Subjective Stated Complaint: Pt reports "I was pushing a 800-900 pound cart at work earlier tonight and felt something pop in my hand. I broke it bef ore." Triage Nursing Assessment: Pt alert and oriented x3. No apparent respiratory distress. Skin w/p/d. Ambulated to cot without difficulty. Arrived per self by POV. Right hand tender to touch with slight swelling to anterior side of hand. No obvious deformities/discoloration/laceration noted. Physician History: 31-year-old male presents to our ED for evaluation of pain to the right wrist. Patient states he was at work. Patient was pushing a cart. Cart was reportedly very heavy in the order of 800 pounds. Patient felt a pop in his right wrist. Patient advises that he has had fractures of his right wrist in the past. Patient concerned that he may have another fracture. No blunt trauma. No falls. No numbness tingling or weakness. Pain described as an ache that is localized. No involvement of the elbow or shoulder. Patient is otherwise healthy. He voices no other complaints or concerns at this time. Portions of this note were created with voice recognition technology. There may be grammatical, spelling, punctuation or sound alike errors Occurred: just prior to arrival Method of Injury: other (Patient was pushing a cart and felt a pop in his right wrist.) Quality: constant Severity of Pain-Max: moderate Severity of Pain-Current: mild Extremities Pain Location: wrist: right Modifying Factors: Improves With: nothing Associated Symptoms: none Allergies/Adverse Reactions: No Known Drug Allergies Allergy (Verified 10/27/22 23:02) Home Medications: Buprenorphine HCl/Naloxone HCl [Buprenorphine-Nalox 8-2 mg Tab] 2.25 mg SL DAILY 02/01/22 [History] Hx Tetanus, Diphtheria Vaccination/Date Given: Yes Hx Influenza Vaccination/Date Given: No Hx Pneumococcal Vaccination/Date Given: No Travel Risk - International Travel Have you traveled outside of the country in past 3 weeks: No - Coronavirus Screening Are you exhibiting any of the following symptoms?: No Close contact with a COVID-19 positive Pt in past 14-21 Days: No - Vaccine Status Have you recieved a Covid-19 vaccination: No - Review of Systems Constitutional: No Symptoms, No Fever, No Chills Eyes: No Symptoms Ears, Nose, & Throat: No Symptoms Respiratory: No Symptoms, No Cough, No Dyspnea Cardiac: No Symptoms, No Chest Pain, No Edema, No Syncope Abdominal/Gastrointestinal: No Symptoms, No Abdominal Pain, No Nausea, No Vomiting, No Diarrhea Genitourinary Symptoms: No Symptoms, No Dysuria Musculoskeletal: No Symptoms, No Back Pain, No Neck Pain Skin: No Symptoms, No Rash Neurological: No Symptoms, No Dizziness, No Focal Weakness, No Sensory Changes Psychological: No Symptoms Endocrine: No Symptoms, Excessive Sweating Hematologic/Lymphatic: No Symptoms All Other Systems: Reviewed and Negative - Past Medical History Pertinent Past Medical History: Yes Neurological History: No Pertinent History ENT History: No Pertinent History Cardiac History: No Pertinent History Respiratory History: No Pertinent History Endocrine Medical History: No Pertinent History Musculoskeletal History: Fractures GI Medical History: No Pertinent History History: No Pertinent History Psycho-Social History: Anxiety, Depression Male Reproductive Disorders: No Pertinent History - Past Surgical History Past Surgical History: Yes Neuro Surgical History: No Pertinent History Cardiac: No Pertinent History Respiratory: No Pertinent History Gastrointestinal: No Pertinent History Genitourinary: No Pertinent History Musculoskeletal: No Pertinent History Male Surgical History: No Pertinent History - Social History Smoking Status: Current every day smoker How long have you smoked: 12 years Exposure to second hand smoke: Yes Drug Use: none Patient Lives Alone: No - Nursing Vital Signs Nursing Vital Signs: Initial Vital Signs Temperature 98.4 F 10/27/22 22:54 Pulse Rate 124 H 10/27/22 22:54 Respiratory Rate 17 10/27/22 22:54 Blood Pressure 131/73 10/27/22 22:54 O2 Sat by Pulse Oximetry 95 10/27/22 22:54 Pain Scale Pain Intensity 8 - Physical Exam General Appearance: alert Eyes, Ears, Nose, Throat Exam: moist mucous membranes Neck Exam: non-tender, full range of motion Cardiovascular/Respiratory Exam: chest non-tender, normal breath sounds, regular rate/rhythm, no respiratory distress Abdominal Exam: non-tender, No guarding Back Exam: normal inspection, No vertebral tenderness Shoulder Exam: normal inspection, non-tender, no evidence of injury, normal ROM Elbow/Forearm Exam: normal inspection, non-tender, no evidence of injury, normal ROM Wrist Exam: limited ROM, pain Neuro/Tendon Exam: normal sensation, normal motor functions Mental Status Exam: alert, oriented x 3, cooperative Skin Exam: normal color, warm, dry SpO2 Interpretation: normal SpO2: 97 O2 Delivery: Room Air - Course Nursing assessment & vital signs reviewed: Yes - Radiology Exams Hand X-ray Interpretation: Interpreted by me (No fracture or dislocation) Ordered Tests: Active Orders 24 hr Category Date Time Status HAND (MINIMUM 3 VIEWS) Stat Exams 10/27/22 23:23 Taken - Progress Progress: improved Progress Note: Complexity of problems addressed is low. Acute uncomplicated A Complexity of data reviewed and analyzed is moderate. Dr. Wells reviewed the x- ray independently. No obvious fractures or dislocations. Risk of complication and or morbidity/mortality of patient management is moderate. Patient received prescription medications for home. Intramuscular injection of Toradol for pain control ministered. Patient received application of a wrist immobilizer. Patient will follow-up in the orthopedic clinic tomorrow for further evaluation and treatment. Portions of this note were created with voice recognition technology. There may be grammatical, spelling, punctuation or sound alike errors 10/27/22 23:41 - Departure Departure Disposition: Home Clinical Impression: Right wrist sprain Condition: Stable Critical Care Time: No Referrals: SURYA GREENE MD [Primary Care Provider] - Follow up/PCP as directed Additional Instructions: Discharge/Care Plan KRISFLACA HERNANDEZ was seen on 10/27/22 in the Emergency Room. The patient was counseled regarding Diagnosis,Lab results, Imaging studies, need for follow up and when to return to the Emergency Room. Prescriptions given: Discharge Note I have spoken with the patient and/or caregivers. I have explained the patient's condition, diagnosis and treatment plan based on the information available to me at this time. I have answered the patient's and/or caregiver's questions and addressed any concerns. The patient and/or caregivers have as good understanding of the patient's diagnosis, condition and treatment plan as can be expected at this point. The vital signs have been stable. The patient's condition is stable and appropriate for discharge from the emergency department. The patient will pursue further outpatient evaluation with the primary care physician or other designated or consulting physician as outlined in the discharge instructions. The patient and/or caregivers are agreeable to this plan of care and follow-up instructions have been explained in detail. The patient and/or caregivers have received these instruction. The patient/and or caregivers are aware that any significant change in condition or worsening of symptoms should prompt an immediate return to this or the closest emergency department or call 911. Prescriptions: Ketorolac Trometh 10 mg Tab [TORAdol 10 MG TABLET] 10 mg PO TID 5 Days #15 tablet Outpatient Orders: Ortho Referral Time Frame: 1 Day, Facility: [facility], Location: ORTHO CLINIC
[2022-10-27 23:58] VITALS: PULSE 110; O2SAT 96
--- NOTE | 2022-10-28 09:16 | XRAY ---
Indication: Pain. Comparison: October 30, 2021 3 view right hand unchanged again demonstrating shortened 4th/5th metacarpals either developmental versus metabolic versus old trauma. No new/acute abnormalities.
== END 2022-10-27 23:45 | disposition home or self-care (01) ==
LOC: ED 22:17
DX: S63.501A Unspecified sprain of right wrist, initial encounter (principal); X50.0XXA Overexertion from strenuous movement or load, initial encounter; Y99.0 Civilian activity done for income or pay; Z79.891 Long term (current) use of opiate analgesic; Z28.310 Unvaccinated for COVID-19; Z72.0 Tobacco use
CPT/HCPCS: 73130; 96372; 99283; J1885; L3908